=== PATIENT | female | born 1995 | race American Indian/Alaskan Native ===

== ENCOUNTER 2019-08-20 21:18 | Emergency (ER) | payer OTHER ==
[2019-08-20 21:22] VITALS: BP 140/97
[2019-08-20] MEDS ORDERED: FLUORESCEIN 1 MG STRIP OP ONE (21:54)
[2019-08-20] MEDS ORDERED: TETRACAINE 0.5% OPHTH SOLN 4ML OU PRN (21:54)
== END 2019-08-20 22:23 | disposition left against medical advice (07) ==
LOC: ED 21:18
DX: S05.92XA Unspecified injury of left eye and orbit, initial encounter (principal); Z53.21 Procedure and treatment not carried out due to patient leaving prior to being seen by health care provider; X58.XXXA Exposure to other specified factors, initial encounter; Y93.89 Activity, other specified; Y92.89 Other specified places as the place of occurrence of the external cause; Y99.8 Other external cause status